=== PATIENT | male | born 1980 | race American Indian/Alaskan Native ===

== ENCOUNTER 2016-07-13 11:47 | Inpatient (IN) | payer OTHER ==
[2016-07-13 14:00] LABS: Basophils % (Auto) 0.6 % (0.0-1.8); Hematocrit 41.9 % (35.5-45.6); Hemoglobin 13.5 gm/dl (11.8-15.2); Mean Corpuscular HGB Conc 32 % (32-34); Mean Corpuscular Hemoglobin 29 pg (28-32); Mean Corpuscular Volume 91 fl (84-94); Platelet Count 349 K/mm3 (140-440); Red Blood Count 4.59 M/mm3 (3.65-5.03); Red Cell Distribution Width 13.3 % (13.2-15.2); White Blood Count 7.4 K/mm3 (4.5-11.0)
[2016-07-13 14:02] LABS: Anion Gap 17 mmol/L; Blood Urea Nitrogen 16 mg/dL (9-20); Calcium 8.8 mg/dL (8.4-10.2); Carbon Dioxide 23 mmol/L (22-30); Chloride 98.1 mmol/L (98-107); Glucose 90 mg/dL (75-100); Potassium 4.2 mmol/L (3.6-5.0); Sodium 134 mmol/L (137-145)
[2016-07-13] MEDS ORDERED: NORCO 5/325 PO ONE (20:40)
--- NOTE | 2016-07-13 20:48 | Emergency Department Report ---
HPI - General Chief Complaint: Skin/Abscess/Foreign Body Time Seen by Provider: 07/13/16 20:24 - HPI HPI: Room 7 The patient is a 35-year-old male presenting with a chief complaint of rectal pain. Patient states for 1 week she has had pain in the rectal area and has noticed a small amount of blood whenever he has a bowel movement. The patient states he also noticed some pus with a bowel movement. He states at times he has to strain when he has a bowel movement. Having a bowel movement does not change the pain. Patient denies any history of fever nausea or vomiting. Patient denies abdominal pain. Rufen helps his pain. Patient denies any recent rectal sexual activity. Of note the patient has a history of perirectal abscess that required surgical drainage in 2014 Location: Rectum Duration: One week Quality: Pain Severity: Moderate Modifying factors: [see above] Context: [see above] Mode of transportation: [not driving] ED Past Medical Hx - Past Medical History Hx Hypertension: Yes Hx HIV: Yes Additional medical history: gout - Surgical History Additional Surgical History: rectal abscess drainage [address] Casarez - Family History Family history: no significant - Social History Smoking Status: Never Smoker Substance Use Type: None (denies illicit drug use), Alcohol (occasional) ED Review of Systems ROS: Stated complaint: HEAVY PAIN BUTTOCKS Other details as noted in HPI Comment: All other systems reviewed and negative Constitutional: denies: chills, fever Eyes: denies: eye pain, eye discharge, vision change ENT: denies: ear pain, throat pain Respiratory: denies: cough, shortness of breath, wheezing Cardiovascular: denies: chest pain, palpitations Endocrine: no symptoms reported Gastrointestinal: hematochezia. denies: abdominal pain, nausea, vomiting, diarrhea Genitourinary: denies: urgency, dysuria Musculoskeletal: denies: back pain, joint swelling, arthralgia Skin: denies: rash, lesions Neurological: denies: headache, weakness, paresthesias Psychiatric: denies: anxiety, depression Hematological/Lymphatic: denies: easy bleeding, easy bruising Physical Exam - Physical Exam Vital Signs: Vital Signs 07/13/16 07/13/16 13:11 19:32 Temperature 98.1 F Pulse Rate 95 H 110 H Respiratory 18 20 Rate Blood Pressure 150/102 Blood Pressure 143/88 [Right] O2 Sat by Pulse 100 100 Oximetry Physical Exam: GENERAL: The patient is well-developed well-nourished male lying on stretcher not appearing to be in acute distress. [] HEENT: Normocephalic. Atraumatic. Extraocular motions are intact. Patient has moist mucous membranes. NECK: Supple. Trachea midline CHEST/LUNGS: Clear to auscultation. There is no respiratory distress noted. HEART/CARDIOVASCULAR: Regular. There is no tachycardia. There is no gallop rub or murmur. ABDOMEN: Abdomen is soft, nontender. Patient has normal bowel sounds. There is no abdominal distention. SKIN: There is no rash. There is no edema. There is no diaphoresis. NEURO: The patient is awake, alert, and oriented. The patient is cooperative. The patient has normal speech MUSCULOSKELETAL: There is no evidence of acute injury. RECTAL: No external hemorrhoids seen. Patient has tenderness inside the rectum along the left wall there is no induration or fluctuance appreciated ED Course Vital Signs 07/13/16 07/13/16 13:11 19:32 Temperature 98.1 F Pulse Rate 95 H 110 H Respiratory 18 20 Rate Blood Pressure 150/102 Blood Pressure 143/88 [Right] O2 Sat by Pulse 100 100 Oximetry - Consultations Consultation #1: 07/13/16 22:45 Surgery consulted 07/13/16 22:[address] Rodas-recommends keeping the patient nothing by mouth and initiating Levaquin and Flagyl. Have the hospitalist admit and he will consult ED Medical Decision Making - Lab Data Result diagrams: 07/13/16 13:29 07/13/16 13:29 Laboratory Tests 07/13/16 07/13/16 13:29 13:29 WBC 7.4 RBC 4.59 Hgb 13.5 Hct 41.9 MCV 91 MCH 29 MCHC 32 RDW 13.3 Plt Count 349 Lymph % (Auto) 21.5 [place] % (Auto) 10.3 H Eos % (Auto) 2.0 Baso % (Auto) 0.6 Lymph # 1.6 [place] # 0.8 Eos # 0.1 Baso # 0.0 Seg Neutrophils % 65.6 Seg Neutrophils # 4.9 Sodium 134 L Potassium 4.2 Chloride 98.1 Carbon Dioxide 23 Anion Gap 17 BUN 16 Creatinine 0.8 Estimated GFR > 60 BUN/Creatinine Ratio 20.00 Glucose 90 Calcium 8.8 - Radiology Data Radiology results: report reviewed (CT abdomen and pelvis), image reviewed (CT abdomen and pelvis) CT abdomen and pelvis (read by radiologist)- abnormal masses seen associated with the posterior aspect of the right side of the rectum. This could be secondary to phlegmon or abscess, but could also represent tumor and biopsy may be necessary for diagnosis. Surgical consultation is recommended. Mildly prominent lymph nodes are seen in the fat adjacent to this. These may be reactive. Possibility of metastatic disease is not excluded. - Differential Diagnosis hemorrhoid, perirectal abscess, proctitis Critical care attestation.: If time is entered above; I have spent that time in minutes in the direct care of this critically ill patient, excluding procedure time. ED Disposition Clinical Impression: HIV positive, Rectal pain, Perirectal abscess Disposition: OP ADMITTED IP TO THIS HOSP Is pt being admited?: Yes Does the pt Need Aspirin: No Condition: Fair Referrals: PRIMARY CARE, [Primary Care Provider] - 3-5 Days Time of Disposition: 22:55 (hospitalist paged)
--- NOTE | 2016-07-13 22:33 | Cat Scan Report ---
FINAL REPORT EXAM: CT ABDOMEN PELVIS W CON HISTORY: rectal pain. History of perirectal abscess 2014. TECHNIQUE: Serial axial images through the abdomen and pelvis with coronal and sagittal reconstruction. Intravenous administration of 100 milliliters Omnipaque 300 PRIORS: CT abdomen pelvis from 12/02/2014 FINDINGS: No focal consolidations are seen in the lung bases. No pleural effusion is seen. No focal hepatic lesion is identified. Gallbladder appears normal. Pancreas appears normal. Spleen appears normal. Adrenal glands appear normal. Left kidney appears normal. Right renal cyst is again noted. Aorta is normal in caliber. Bladder appears normal. No free fluid. There is not evidence of bowel obstruction. There is a mass associated with the posterior aspect of the right side of the rectum extending to the level of the anus that measures approximately 7.9 x 5.7 x 6.9 centimeters. Mildly prominent lymph nodes are seen in the adjacent fat. Mesenteric lymph nodes in the upper abdomen appears similar to the prior study. No acute osseous abnormality is identified. IMPRESSION: 1. Abnormal mass is seen associated with the posterior aspect of the right side of the rectum. This could be secondary to phlegmon or abscess, but could also represent tumor, and biopsy may be necessary for diagnosis. Surgical consultation is recommended. Mildly prominent lymph nodes are seen in the fat adjacent to this. These may be reactive. Possibility of metastatic disease is not excluded. 2. Right renal cyst. This appears similar to the prior study. UNF
[2016-07-13] MEDS ORDERED: LEVAQUIN 500MG/100ML 500 MG/100 ML BAG IV ONE (22:54)
[2016-07-13] MEDS ORDERED: FLAGYL 500 MG/100 ML 500 MG/100 ML BAG IV ONE (23:26)
[2016-07-13] MEDS: FLAGYL 500 MG/100 ML 500 MG/100 ML BAG IV ONE (23:50)
--- NOTE | 2016-07-13 23:55 | History and Physical Report ---
History of Present Illness History of present illness: SEE PREVIUS H&P DICTATION Medications and Allergies Allergies Allergy/AdvReac Type Severity Reaction Status Date / Time No Known Allergies Allergy Verified 10/27/14 12:51 Active Meds: Active Medications Metronidazole (Flagyl 500 Mg/100 Ml) 500 mg in 100 mls @ 100 mls/hr IV ONCE ONE Stop: 07/14/16 23:54 Last Admin: 07/13/16 23:50 Dose: 100 mls/hr Exam - Constitutional Vitals: Temp Pulse Resp BP Pulse Ox 98.1 F 110 H 20 143/88 100 07/13/16 13:11 07/13/16 19:32 07/13/16 19:32 07/13/16 19:32 07/13/16 19:32 Results - Labs CBC & Chem 7: 07/15/16 04:52 07/15/16 04:52 Labs: Abnormal lab results 07/13/16 07/13/16 Range/Units 13:29 13:29 [place] % (Auto) 10.3 H (0.0-7.3) % Sodium 134 L (137-145) mmol/L
[2016-07-14] MEDS ORDERED: ZOFRAN IV PRN (00:08)
[2016-07-14] MEDS ORDERED: MILK OF MAGNESIA PO PRN (00:08)
[2016-07-14] MEDS ORDERED: DULCOLAX PR PRN (00:08)
[2016-07-14] MEDS ORDERED: TYLENOL PO PRN (00:08)
--- NOTE | 2016-07-14 07:46 | Admit Criteria Form ---
Admission Criteria Documentation: SKIN AND WOUND CARE Clinical Indications for Inpatient Care (Place 'X' for any and all applicable criteria): Ongoing inpatient care may be indicated for pressure, venous, arterial, or neuropathic ulcers, with ANY ONE of the following (2)(3)(8)(9)(21)(25): [ ]I. Need for ANY ONE of the following(26) [ ]a) Pressure ulcer closure procedures [ ]b) Skin grafting [ ]c) Wound debridement [ ]d) Dressing change under general anesthesia [ ]e) Arterial revascularization procedures(19) (Also use Aortofemoral or Aortoiliac Bypass or Femoral Popliteal Bypass Criteria as appropriate) [ ]f) Amputation (Also use Foot: Transmetatarsal Amputation or Knee: Amputation Above or Below Knee Criteria as appropriate) [ ]g) Diverting colostomy [ ]h) Other significant surgical treatment [X ]II. Infection requiring inpatient care as indicated by ALL of the following (27) [X ]a) ANY ONE of the following signs of infection: [ ]i) Poorly approximated incision line. [ ]ii) Excessive drainage [ ]iii) Foul odor [X ]iv) Pus [ ]v) Increased redness [ ]vi) Breakdown in tissue after suture removal [ ]vii) Fever [X ]b) ANY ONE of the following findings: [ ]i) Mental status changes [ ]ii) Dehydration [ ]iii) Bacteremia [ ]iv) Perineal infection [ ]v) Hemodynamic instability [ X]vi) High-risk conditions, such as ANY ONE of the following: [ ]1) Poorly controlled diabetes [ ]2) Cirrhosis [ ]3) Neutropenia [ ]4) Asplenia [ X]5) HIV infection [ ]6) Immunosuppression Extended stay beyond goal length of stay for primary condition may be needed until ALL of the following are present(1)(2)(13)(21)(27): [ ]a) Tissue necrosis absent or treatment plan manageable at lower level of care [ ]b) Fistulas, tunneling, or underlying deep tissue infection absent or treated [ ]c) Purulence and tissue breakdown absent or improved [ ]d) Ulcer surgical repair absent or healing without complications [ ]e) Wound infection absent or manageable at lower level of care [ ]f) Comorbidities absent or manageable at lower level of care The original [facility] content created by Emanuel Tamez has been revised. The portions of the content which have been revised are identified through the use of italic text or in bold, and [facility] has neither reviewed nor approved the modified material. All other unmodified content is copyright [facility]. Please see references footnoted in the original [facility] edition 2016 Admission Criteria Met: Yes
--- NOTE | 2016-07-14 09:59 | History and Physical Report ---
CHIEF COMPLAINT: Rectal pain. HISTORY OF PRESENT ILLNESS: This is a 38-year-old man with a history of HIV, unknown CD4 count, comes to the Emergency Room because of right-sided rectal pain. He describes the pain as sharp, intermittent in nature, lasting for less than 20 minutes, intensity 7/10, no radiation. He has been taking ibuprofen for the pain with some relief. He denies fever or chills. He admits to streaks of blood when he strains to have a bowel movement. REVIEW OF SYSTEMS: No chest pain, palpitation. No shortness of breath or cough. No abdominal pain, diarrhea. No dysuria or frequency. No rash or pruritus, anxiety, depression. No seizure or focal weakness. No headache or blurred vision. Other review of systems is negative. PAST SURGICAL HISTORY: None. SOCIAL HISTORY: Social alcohol use. No tobacco or drugs. FAMILY HISTORY: Significant for hypertension. PHYSICAL EXAMINATION: Vitals reviewed HEENT: Normocephalic, atraumatic. Pupils equal, round, react to light. Extraocular movement is intact. No scleral icterus. No JVD. No thyromegaly is noted. NECK: Supple. No carotid bruits. Mucous membrane moist. HEAR: S1, S2. Regular rate and rhythm. LUNGS: Clear to auscultation bilaterally. Breathing comfortable. ABDOMEN: Positive bowel sounds, nontender, nondistended. RECTAL: There is an area of induration. No surrounding erythema, tender to touch. LABORATORY DATA: As follows: Labs and CT abdomen and pelvis reviewed IMPRESSION AND PLAN: 1. Perirectal abscess/Mass. Admit to Medicine. Place on bowel rest. We will give IV Flagyl, Levaquin, consult Surgery. Start IV morphine. 2. Deep venous thrombosis prophylaxis. JOB# [id number] AES/NTS MTDD
--- NOTE | 2016-07-14 13:38 | Consultation ---
History of Present Illness Consult date: 07/14/16 Reason for consult: other (perirectal abscess.) Chief complaint: Perirectal pain. - History of present illness History of present illness: 35 years old male with perirectal pain. Came to the emergency room and a CAT scan of the pelvis showed a perirectal abscess. Consulted for management. Past History Past Medical History: HIV/AIDS, hypertension, other (gout) Past Surgical History: Other (incision and drainage of perirectal abscess) Social history: no significant social history Family history: no significant family history Medications and Allergies Allergies Allergy/AdvReac Type Severity Reaction Status Date / Time No Known Allergies Allergy Verified 10/27/14 12:51 Active Meds: Active Medications Acetaminophen (Tylenol) 650 mg PO Q4H PRN PRN Reason: Pain MILD(1-3)/Fever >100.5/MUELLER Bisacodyl (Dulcolax) 10 mg HI QDAY PRN PRN Reason: Constipation unrelieved by MOM Enoxaparin Sodium (Lovenox) 40 mg SUB-Q QDAY@2200 PETRONA Metronidazole (Flagyl 500 Mg/100 Ml) 500 mg in 100 mls @ 100 mls/hr IV ONCE ONE Stop: 07/14/16 23:54 Last Admin: 07/13/16 23:50 Dose: 100 mls/hr Levofloxacin/Dextrose (Levaquin 750mg/150ml) 750 mg in 150 mls @ 100 mls/hr IV Q24HR@2200 PETRONA PRN Reason: Protocol Metronidazole (Flagyl 500 Mg/100 Ml) 500 mg in 100 mls @ 100 mls/hr IV Q8HR [facility] Magnesium Hydroxide (Milk Of Magnesia) 30 ml PO Q4H PRN PRN Reason: Constipation Morphine Sulfate (Morphine) 2 mg IV Q4H PRN PRN Reason: Pain, Moderate (4-6) Ondansetron HCl (Zofran) 4 mg IV Q8H PRN PRN Reason: N/V unrelieved by Reglan Review of Systems All systems: negative (present complaint.) Exam Vital Signs Temp Pulse Resp BP Pulse Ox 98.1 F 95 H 18 150/102 100 07/13/16 13:11 07/13/16 13:11 07/13/16 13:11 07/13/16 13:11 05/16/17 13:11 - General physical appearance Positive: well developed, well nourished, no distress, obese - Eyes Positive: PERRL, normal occular movement - ENT Positive: normal pinna, normal nares, normal mucosa, no hearing loss, no congestion - Neck Positive: no masses, no bruits, trachea midline, no venous distension - Respiratory Positive: normal expansion, normal respiratory effort, clear to auscultation - Cardiovascular Rhythm: regular Heart Sounds: Present: S1 & S2 - Extremities Extremities: no ischemia - Abdomen Abdomen: Present: soft, bowel sounds normal. Absent: tender, distended - Genitourinary Male Genitourinary: deferred - Rectum Rectum: mass (tender lump in the posterior perirectal area.) - Neurologic Neurologic: alert and oriented to time, place and person, motor strength and sensation are grossly intact - Musculoskeletal normal gait, normal posture - Psychiatric Psychiatric: appropriate mood/affect, intact judgment & insight Results - Labs 07/13/16 13:29 07/13/16 13:29 - Imaging CT scan - pelvis: report reviewed Assessment and Plan Impression: #1. Perirectal mass and/or phlegmon. #2. HIV positive. #3. Hypertension. Recommendation: Incision and drainage and examination under anesthesia PHLEGMON in the perirectal area possible biopsy. Patient scheduled for the procedure tomorrow under general anesthesia in the operating room. He was not done today because the patient didn't stay nothing by mouth.
[2016-07-14] MEDS: FLAGYL 500 MG/100 ML 500 MG/100 ML BAG IV SCH ×3 (15:39→22:00)
--- NOTE | 2016-07-14 16:27 | Anesthesia Consultation ---
Anesthesia Consult and Med Hx Date of service: 07/14/16 - Airway Anesthetic Teeth Evaluation: Good ROM Head & Neck: Adequate Mental/Hyoid Distance: Adequate Mallampati Class: Class III Intubation Access Assessment: Possibly Difficult - Pre-Operative Health Status ASA Pre-Surgery Classification: ASA3 Proposed Anesthetic Plan: General - Pulmonary Hx Asthma: No COPD: No Hx Pneumonia: No - Cardiovascular System Hx Hypertension: Yes (htn) - Central Nervous System Hx Back Pain: No (gout) - Endocrine Hx End Stage Renal Disease: No - Other Systems Hx Cancer: No Hx Obesity: Yes (BMI 36.6) - Additional Comments Anesthesia Medical History Comments: HIV-positive
--- NOTE | 2016-07-14 17:45 | Progress Note ---
Assessment and Plan Assessment and plan: --Perirectal mass ; IV antibiotics, nothing by mouth status, possible incision and drainage tomorrow Pain medications, surgery following --Hypertension; moderate control Closely monitor blood pressures when necessary hydralazine --History of HIV Patient will follow with health Department/ID first HIV needs upon discharge --DVT prophylaxis with Lovenox --Obesity; counseling done patient strongly advised dietary modification and exercise as tolerated and weight reduction When medically stable, verbalized understanding Closely monitor the patient and adjust management as needed Consults and recommendations noted and appreciated History Interval history: Patient seen and evaluated medical records reviewed Admitted with perirectal mass, evaluated by surgery Scheduled for incision and drainage/biopsy tomorrow Patient complains of some pain Alert awake oriented 3 not in acute distress Vital signs reviewed stable Hospitalist Physical - Constitutional Vitals: Temp Pulse Resp BP Pulse Ox 98.4 F 89 20 133/86 98 07/14/16 07:45 07/14/16 07:45 07/14/16 07:45 07/14/16 07:45 07/14/16 07:45 General appearance: Present: no acute distress, well-nourished, obese - EENT Eyes: Present: PERRL, EOM intact - Neck Neck: Present: supple, normal ROM - Respiratory Respiratory effort: normal Respiratory: bilateral: diminished, negative: rales, rhonchi, wheezing - Cardiovascular Rhythm: regular Heart Sounds: Present: S1 & S2 - Extremities Extremities: no ischemia, pulses intact, pulses symmetrical Peripheral Pulses: within normal limits - Abdominal General gastrointestinal: soft, non-tender, non-distended, normal bowel sounds - Integumentary Integumentary: Present: clear, warm - Psychiatric Psychiatric: appropriate mood/affect, cooperative - Neurologic Neurologic: CNII-XII intact, moves all extremities Results - Labs CBC & Chem 7: 07/13/16 13:29 07/13/16 13:29 Labs: Laboratory Last Values WBC 7.4 K/mm3 (4.5-11.0) 07/13/16 13:29 RBC 4.59 M/mm3 (3.65-5.03) 07/13/16 13:29 Hgb 13.5 gm/dl (11.8-15.2) 07/13/16 13:29 Hct 41.9 % (35.5-45.6) 07/13/16 13:29 MCV 91 fl (84-94) 07/13/16 13:29 MCH 29 pg (28-32) 07/13/16 13:29 MCHC 32 % (32-34) 07/13/16 13:29 RDW 13.3 % (13.2-15.2) 07/13/16 13:29 Plt Count 349 K/mm3 (140-440) 07/13/16 13:29 Lymph % (Auto) 21.5 % (13.4-35.0) 07/13/16 13:29 [place] % (Auto) 10.3 % (0.0-7.3) H 07/13/16 13:29 Eos % (Auto) 2.0 % (0.0-4.3) 07/13/16 13:29 Baso % (Auto) 0.6 % (0.0-1.8) 07/13/16 13:29 Lymph # 1.6 K/mm3 (1.2-5.4) 07/13/16 13:29 [place] # 0.8 K/mm3 (0.0-0.8) 07/13/16 13:29 Eos # 0.1 K/mm3 (0.0-0.4) 07/13/16 13:29 Baso # 0.0 K/mm3 (0.0-0.1) 07/13/16 13:29 Seg Neutrophils % 65.6 % (40.0-70.0) 07/13/16 13:29 Seg Neutrophils # 4.9 K/mm3 (1.8-7.7) 07/13/16 13:29 Sodium 134 mmol/L (137-145) L 07/13/16 13:29 Potassium 4.2 mmol/L (3.6-5.0) 07/13/16 13:29 Chloride 98.1 mmol/L (98-107) 07/13/16 13:29 Carbon Dioxide 23 mmol/L (22-30) 07/13/16 13:29 Anion Gap 17 mmol/L 07/13/16 13:29 BUN 16 mg/dL (9-20) 07/13/16 13:29 Creatinine 0.8 mg/dL (0.8-1.5) 07/13/16 13:29 Estimated GFR > 60 ml/min 07/13/16 13:29 BUN/Creatinine Ratio 20.00 % 07/13/16 13:29 Glucose 90 mg/dL (75-100) 07/13/16 13:29 Calcium 8.8 mg/dL (8.4-10.2) 07/13/16 13:29
[2016-07-14] MEDS: FLAGYL 500 MG/100 ML 500 MG/100 ML BAG IV ONE (22:22)
[2016-07-14] MEDS: LOVENOX SUB-Q SCH (22:23)
[2016-07-14] MEDS: LEVAQUIN 750MG/150ML 750 MG/150 ML BAG IV SCH (22:23)
[2016-07-14] MEDS: MORPHINE IV PRN (22:30)
[2016-07-15] MEDS: FLAGYL 500 MG/100 ML 500 MG/100 ML BAG IV SCH ×3 (05:29→23:05)
[2016-07-15 05:34] LABS: White Blood Count 6.1 K/mm3 (4.5-11.0)
[2016-07-15 05:35] LABS: Basophils % (Auto) 0.6 % (0.0-1.8); Eosinophils % (Auto) 4.4 % (0.0-4.3); Hematocrit 37.5 % (35.5-45.6); Hemoglobin 12.4 gm/dl (11.8-15.2); Mean Corpuscular HGB Conc 33 % (32-34); Mean Corpuscular Hemoglobin 30 pg (28-32); Mean Corpuscular Volume 92 fl (84-94); Platelet Count 325 K/mm3 (140-440); Red Blood Count 4.09 M/mm3 (3.65-5.03); Red Cell Distribution Width 13.1 % (13.2-15.2)
[2016-07-15 05:45] LABS: Anion Gap 16 mmol/L; Blood Urea Nitrogen 12 mg/dL (9-20); Calcium 8.7 mg/dL (8.4-10.2); Carbon Dioxide 26 mmol/L (22-30); Chloride 100.1 mmol/L (98-107); Glucose 89 mg/dL (75-100); Potassium 4.8 mmol/L (3.6-5.0); Sodium 137 mmol/L (137-145)
[2016-07-15 06:10] LABS: INR 1.22 (0.87-1.13)
[2016-07-15 06:11] LABS: Partial Thromboplastin Time 38.8 Sec. (24.2-36.6)
[2016-07-15] MEDS ORDERED: VERSED IV NR (07:00)
[2016-07-15] MEDS ORDERED: PEPCID IV NR (07:00)
[2016-07-15] MEDS ORDERED: LACTATED RINGERS 1,000 ML IV SCH (07:00)
--- NOTE | 2016-07-15 09:18 | Progress Note ---
Assessment and Plan Assessment and plan: --Perirectal mass ; Incision and drainage and debridement today IV antibiotics, nothing by mouth status, possible incision and drainage tomorrow Pain medications, surgery following --Hypertension; moderate control Closely monitor blood pressures when necessary hydralazine --History of HIV Patient will follow with health Department/ID first HIV needs upon discharge --DVT prophylaxis with Lovenox --Obesity; counseling done patient strongly advised dietary modification and exercise as tolerated and weight reduction When medically stable, verbalized understanding Closely monitor the patient and adjust management as needed Consults and recommendations noted and appreciated History Interval history: Since seen and evaluated medical records reviewed Scheduled for incision and drainage of perirectal abscess today Patient feels better no new complaints Vital signs reviewed stable Hospitalist Physical - Constitutional Vitals: Temp Pulse Resp BP Pulse Ox 98 F 90 18 128/84 98 07/15/16 08:00 07/15/16 08:00 07/15/16 08:00 07/15/16 08:00 07/15/16 08:00 General appearance: Present: no acute distress, well-nourished, obese - EENT Eyes: Present: PERRL, EOM intact - Neck Neck: Present: supple, normal ROM - Respiratory Respiratory effort: normal Respiratory: negative: rales, rhonchi, wheezing - Cardiovascular Rhythm: regular Heart Sounds: Present: S1 & S2 - Extremities Extremities: no ischemia, pulses intact, pulses symmetrical Peripheral Pulses: within normal limits - Abdominal General gastrointestinal: soft, non-tender, non-distended, normal bowel sounds - Integumentary Integumentary: Present: clear, warm - Psychiatric Psychiatric: appropriate mood/affect, cooperative - Neurologic Neurologic: CNII-XII intact, moves all extremities Results - Labs CBC & Chem 7: 07/15/16 04:52 07/15/16 04:52 Labs: Laboratory Last Values WBC 6.1 K/mm3 (4.5-11.0) 07/15/16 04:52 RBC 4.09 M/mm3 (3.65-5.03) 07/15/16 04:52 Hgb 12.4 gm/dl (11.8-15.2) 07/15/16 04:52 Hct 37.5 % (35.5-45.6) 07/15/16 04:52 MCV 92 fl (84-94) 07/15/16 04:52 MCH 30 pg (28-32) 07/15/16 04:52 MCHC 33 % (32-34) 07/15/16 04:52 RDW 13.1 % (13.2-15.2) L 07/15/16 04:52 Plt Count 325 K/mm3 (140-440) 07/15/16 04:52 Lymph % (Auto) 24.5 % (13.4-35.0) 07/15/16 04:52 [place] % (Auto) 12.3 % (0.0-7.3) H 07/15/16 04:52 Eos % (Auto) 4.4 % (0.0-4.3) H 07/15/16 04:52 Baso % (Auto) 0.6 % (0.0-1.8) 07/15/16 04:52 Lymph # 1.5 K/mm3 (1.2-5.4) 07/15/16 04:52 [place] # 0.7 K/mm3 (0.0-0.8) 07/15/16 04:52 Eos # 0.3 K/mm3 (0.0-0.4) 07/15/16 04:52 Baso # 0.0 K/mm3 (0.0-0.1) 07/15/16 04:52 Seg Neutrophils % 58.2 % (40.0-70.0) 07/15/16 04:52 Seg Neutrophils # 3.5 K/mm3 (1.8-7.7) 07/15/16 04:52 PT 15.3 Sec. (12.2-14.9) H 07/15/16 04:52 INR 1.22 (0.87-1.13) H 07/15/16 04:52 APTT 38.8 Sec. (24.2-36.6) H 07/15/16 04:52 Sodium 137 mmol/L (137-145) 07/15/16 04:52 Potassium 4.8 mmol/L (3.6-5.0) 07/15/16 04:52 Chloride 100.1 mmol/L (98-107) 07/15/16 04:52 Carbon Dioxide 26 mmol/L (22-30) 07/15/16 04:52 Anion Gap 16 mmol/L 07/15/16 04:52 BUN 12 mg/dL (9-20) 07/15/16 04:52 Creatinine 0.8 mg/dL (0.8-1.5) 07/15/16 04:52 Estimated GFR > 60 ml/min 07/15/16 04:52 BUN/Creatinine Ratio 15.00 % 07/15/16 04:52 Glucose 89 mg/dL (75-100) 07/15/16 04:52 Calcium 8.7 mg/dL (8.4-10.2) 07/15/16 04:52
[2016-07-15] MEDS ORDERED: DIPRIVAN 10 MG/ML IV ONE (10:23)
[2016-07-15] MEDS ORDERED: DILAUDID ONE ×2 (10:24→12:48)
[2016-07-15] MEDS ORDERED: ROBINUL ONE (10:27)
[2016-07-15] MEDS ORDERED: QUELICIN ONE (10:27)
[2016-07-15] MEDS ORDERED: ZEMURON IV ONE (10:27)
[2016-07-15] MEDS ORDERED: XYLOCAINE MPF 2% ONE (10:28)
[2016-07-15] MEDS ORDERED: NEOSTIGMINE ONE (10:28)
--- NOTE | 2016-07-15 10:39 | Anesthesia Day of Surgery ---
Anesthesia Day of Surgery - Day of Surgery Patient Examined: Yes Patient H&P Reviewed: Yes Patient is NPO: Yes
[2016-07-15] MEDS ORDERED: ZOFRAN ONE (11:36)
[2016-07-15] MEDS ORDERED: DECADRON ONE (11:36)
[2016-07-15] MEDS ORDERED: BREVIBLOC IV ONE (11:42)
[2016-07-15] MEDS ORDERED: MARCAINE-EPI 0.5%-1:200,000 INFILTRATI ONE (11:55)
[2016-07-15] MEDS ORDERED: NACL 0.9% IR ONE (12:21)
[2016-07-15] MEDS ORDERED: MARCAINE 0.5% INFILTRATI ONE (12:22)
--- NOTE | 2016-07-15 12:44 | Operative Report ---
Operative Report Operative Report: Date of operation: 07/15/2016. Preoperative diagnosis: Perirectal abscess. Postoperative diagnoses: Perirectal abscess. Operation: Incision, drainage and excisional debridement of a perirectal abscess. Surgeon: Magdi Rodas M.D. Findings: 35 years old male with history of HIV/AIDS admitted to the hospital with perirectal pain. A CT of the pelvis showed an area off abnormality in the posterior perirectal area described as a Cyst versus tumor. At operation we found posterior mucosal perirectal mass from the body made and some solid tissue. There was an external orifice of these mass/cavity to the anal skin in the right posterior area. Procedure: Under general anesthesia with the patient adequately temporal pulsation the buttocks were spread with tape. The perianal region was prepped and draped in the usual sterile manner. Rectal examination was done digitally and also visually using a previous incision retractor. The submucosal lump was felt with my finger. Because it was just next to the external orifice we went ahead and pass a probe through the external orifice and some bloody fluid came out. The artery crease was made bigger, enough to admit my index finger. I introduced my finger in the cavity and some solid tissue was excised. This was sent to pathology for examination. Then the area was irrigated with normal saline solution. Because incision went a little bit deeper in the mucosa we went ahead and put a stitch of Vicryl on it. After this was done there wound and cavity were packed with Betadine soaked fluff gauze. Marcaine 0.5% was injected in the perirectal area for postoperative analgesia. A piece of Gelfoam was left down the canal. The wound was dressed with fluffs and AVD pads. The patient was returned to the supine position, awakened, extubated and transferred to the recovery room in good condition. Intravenous fluid replacement: crystalloids. Estimated blood loss: Less than 50 mL. Condition: Good.
[2016-07-15] MEDS: DILAUDID IV PRN ×2 (12:46→13:00)
[2016-07-15] MEDS: MORPHINE IV PRN (14:05)
--- NOTE | 2016-07-15 14:10 | Post Anesthesia Evaluation ---
- Post Anesthesia Evaluation Patient Participated: Yes Airway Patent: Yes Stable Respiratory Function: Yes Nausea/Vomiting: No Temp > 96.8F: Yes Pain Manageable: Yes Adequeate Hydration: Yes Anesthesia Complications: No Block Receding Appropriately: Not Applicable Patient on Ventilator: No
[2016-07-15] MEDS: LEVAQUIN 750MG/150ML 750 MG/150 ML BAG IV SCH (23:06)
[2016-07-15] MEDS: LOVENOX SUB-Q SCH (23:06)
[2016-07-16] MEDS: MORPHINE IV PRN ×3 (00:33→17:50)
[2016-07-16] MEDS: FLAGYL 500 MG/100 ML 500 MG/100 ML BAG IV SCH ×3 (06:30→21:18)
[2016-07-16 07:44] LABS: Basophils % (Auto) 0.8 % (0.0-1.8); Hematocrit 40.9 % (35.5-45.6); Hemoglobin 13.2 gm/dl (11.8-15.2); Mean Corpuscular HGB Conc 32 % (32-34); Mean Corpuscular Hemoglobin 29 pg (28-32); Mean Corpuscular Volume 91 fl (84-94); Platelet Count 374 K/mm3 (140-440); Red Blood Count 4.52 M/mm3 (3.65-5.03); White Blood Count 11.2 K/mm3 (4.5-11.0)
--- NOTE | 2016-07-16 07:44 | Progress Note ---
Assessment and Plan Assessment and plan: --Perirectal mass ; s/p Incision and drainage and debridement IV antibiotics, wound care, sitz bath Pain medications, surgery following --Hypertension; moderate control Closely monitor blood pressures when necessary hydralazine --History of HIV Patient will follow with health Department/ID first HIV needs upon discharge --DVT prophylaxis with Lovenox --Obesity; counseling done patient strongly advised dietary modification and exercise as tolerated and weight reduction When medically stable, verbalized understanding Possible discharge in 1-2 days if stable Plan of care discussed with the patient as well as his nurse History Interval history: Patient seen and evaluated medical records reviewed No new events reported by the nursing staff Alert awake oriented 3 not in acute distress Vital signs reviewed Hospitalist Physical - Constitutional Vitals: Temp Pulse Resp BP Pulse Ox 97.9 F 115 H 18 137/88 98 07/15/16 23:08 07/15/16 23:08 07/15/16 23:08 07/15/16 23:08 07/15/16 23:08 General appearance: Present: no acute distress, well-nourished, obese - EENT Eyes: Present: PERRL, EOM intact - Neck Neck: Present: supple, normal ROM - Respiratory Respiratory effort: normal Respiratory: negative: rales, rhonchi, wheezing - Cardiovascular Rhythm: regular Heart Sounds: Present: S1 & S2 - Extremities Extremities: no ischemia, pulses intact, pulses symmetrical Peripheral Pulses: within normal limits - Abdominal General gastrointestinal: soft, non-tender, non-distended, normal bowel sounds - Integumentary Integumentary: Present: clear, warm - Psychiatric Psychiatric: appropriate mood/affect, cooperative - Neurologic Neurologic: CNII-XII intact, moves all extremities Results - Labs CBC & Chem 7: 07/16/16 06:56 07/16/16 06:56 Labs: Laboratory Last Values WBC 6.1 K/mm3 (4.5-11.0) 07/15/16 04:52 RBC 4.09 M/mm3 (3.65-5.03) 07/15/16 04:52 Hgb 12.4 gm/dl (11.8-15.2) 07/15/16 04:52 Hct 37.5 % (35.5-45.6) 07/15/16 04:52 MCV 92 fl (84-94) 07/15/16 04:52 MCH 30 pg (28-32) 07/15/16 04:52 MCHC 33 % (32-34) 07/15/16 04:52 RDW 13.1 % (13.2-15.2) L 07/15/16 04:52 Plt Count 325 K/mm3 (140-440) 07/15/16 04:52 Lymph % (Auto) 24.5 % (13.4-35.0) 07/15/16 04:52 [place] % (Auto) 12.3 % (0.0-7.3) H 07/15/16 04:52 Eos % (Auto) 4.4 % (0.0-4.3) H 07/15/16 04:52 Baso % (Auto) 0.6 % (0.0-1.8) 07/15/16 04:52 Lymph # 1.5 K/mm3 (1.2-5.4) 07/15/16 04:52 [place] # 0.7 K/mm3 (0.0-0.8) 07/15/16 04:52 Eos # 0.3 K/mm3 (0.0-0.4) 07/15/16 04:52 Baso # 0.0 K/mm3 (0.0-0.1) 07/15/16 04:52 Seg Neutrophils % 58.2 % (40.0-70.0) 07/15/16 04:52 Seg Neutrophils # 3.5 K/mm3 (1.8-7.7) 07/15/16 04:52 PT 15.3 Sec. (12.2-14.9) H 07/15/16 04:52 INR 1.22 (0.87-1.13) H 07/15/16 04:52 APTT 38.8 Sec. (24.2-36.6) H 07/15/16 04:52 Sodium 137 mmol/L (137-145) 07/15/16 04:52 Potassium 4.8 mmol/L (3.6-5.0) 07/15/16 04:52 Chloride 100.1 mmol/L (98-107) 07/15/16 04:52 Carbon Dioxide 26 mmol/L (22-30) 07/15/16 04:52 Anion Gap 16 mmol/L 07/15/16 04:52 BUN 12 mg/dL (9-20) 07/15/16 04:52 Creatinine 0.8 mg/dL (0.8-1.5) 07/15/16 04:52 Estimated GFR > 60 ml/min 07/15/16 04:52 BUN/Creatinine Ratio 15.00 % 07/15/16 04:52 Glucose 89 mg/dL (75-100) 07/15/16 04:52 Calcium 8.7 mg/dL (8.4-10.2) 07/15/16 04:52
[2016-07-16 08:01] LABS: Anion Gap 16 mmol/L; BUN/Creatinine Ratio 16.25; Blood Urea Nitrogen 13 mg/dL (9-20); Carbon Dioxide 27 mmol/L (22-30); Chloride 98.2 mmol/L (98-107); Glucose 113 mg/dL (75-100); Potassium 4.3 mmol/L (3.6-5.0); Sodium 137 mmol/L (137-145)
--- NOTE | 2016-07-16 12:55 | Progress Note ---
Assessment and Plan IMP: Stabel after I&D and debridement. PLAN: Continue sitz bath. Home per internal medicine. Subjective Date of service: 07/16/16 Patient Reports: Positive: no new complaints, pain is less, voiding w/o difficulty, other (reports that the packing has been removed and started sitz bath) Objective Vital Signs - 12hr 07/16/16 08:46 Temperature 98.1 F Pulse Rate [ 118 H Right Radial] Respiratory 18 Rate Blood Pressure 131/78 [Left Arm] O2 Sat by Pulse 99 Oximetry - Rectum other (dressings in place) - Labs 07/16/16 06:56 07/16/16 06:56 Diabetes panel 07/16/16 Range/Units 06:56 Sodium 137 (137-145) mmol/L Potassium 4.3 (3.6-5.0) mmol/L Chloride 98.2 (98-107) mmol/L Carbon Dioxide 27 (22-30) mmol/L BUN 13 (9-20) mg/dL Creatinine 0.8 (0.8-1.5) mg/dL Glucose 113 H (75-100) mg/dL Calcium 9.0 (8.4-10.2) mg/dL Calcium panel 07/16/16 Range/Units 06:56 Calcium 9.0 (8.4-10.2) mg/dL Pituitary panel 07/16/16 Range/Units 06:56 Sodium 137 (137-145) mmol/L Potassium 4.3 (3.6-5.0) mmol/L Chloride 98.2 (98-107) mmol/L Carbon Dioxide 27 (22-30) mmol/L BUN 13 (9-20) mg/dL Creatinine 0.8 (0.8-1.5) mg/dL Glucose 113 H (75-100) mg/dL Calcium 9.0 (8.4-10.2) mg/dL Adrenal panel 07/16/16 Range/Units 06:56 Sodium 137 (137-145) mmol/L Potassium 4.3 (3.6-5.0) mmol/L Chloride 98.2 (98-107) mmol/L Carbon Dioxide 27 (22-30) mmol/L BUN 13 (9-20) mg/dL Creatinine 0.8 (0.8-1.5) mg/dL Glucose 113 H (75-100) mg/dL Calcium 9.0 (8.4-10.2) mg/dL
[2016-07-16] MEDS ORDERED: PERCOCET 5/325 PO PRN (17:36)
[2016-07-16] MEDS: LOVENOX SUB-Q SCH (21:17)
[2016-07-16] MEDS: LEVAQUIN 750MG/150ML 750 MG/150 ML BAG IV SCH (21:18)
[2016-07-17] MEDS: MORPHINE IV PRN (04:57)
[2016-07-17] MEDS ORDERED: FLAGYL PO SCH (06:00)
[2016-07-17 07:46] VITALS: BP 116/57
--- NOTE | 2016-07-17 08:10 | Discharge Summary ---
Providers - Providers Date of Admission: 07/13/16 23:54 Date of discharge: 07/17/16 Attending physician: MARCO SLOAN 07/15/16 12:27 Consult to Wound/ET Nurse [CONS] Routine Reason For Exam: wound eval Primary care physician: TRACK MAINTAINER Hospitalization Reason for admission: rectal pain Condition: Fair Pertinent studies: CT abdomen and pelvis; abnormal mass seen associated with the posterior aspect of the right side of the rectum could be phlegmon or abscess right renal cyst Incision and drainage and excisional debridement of the mac rectal abscess Hospital course: 38-year-old male patient with significant past medical history of HIV not on any medications was admitted through emergency room with rectal pain patient was initially evaluated and noted to have perirectal abscess/mass admitted to the hospital, managed with the empiric antibiotics subsequently evaluated by general surgeon Patient underwent surgical procedure with the incision and drainage and debridement of perirectal abscess Patient received wound care, sitz bath, symptoms significantly improved Surgery has cleared for discharge and follow-up with them as outpatient manager apple has evaluated the patient, set up home health and home wound care upon discharge Patient advised dietary modification and exercise as tolerated weight reduction for his obesity Today , patient is comfortable in bed denies any pain no fever Alert awake oriented 3, vital signs are stable [id number] evaluation physical examination done by me prior to discharge is unremarkable as detailed below Patient also advised to follow with his primary care physician/health Department /infectious diseases for his HIV needs patient verbalized understanding Final diagnosis; Prerectal abscess Status post incision and drainage History of HIV Hypertension Obesity Disposition: DC/TX HOME UNDER HOME HEALTH Time spent for discharge: 32 min Core Measure Documentation - Palliative Care Palliative Care/ Comfort Measures: Not Applicable - Core Measures Any of the following diagnoses?: none Exam - Constitutional Vitals: Temp Pulse Resp BP Pulse Ox 98.7 F 99 H 20 116/57 99 07/17/16 07:44 07/17/16 07:44 07/17/16 07:44 07/17/16 07:44 07/16/16 23:00 General appearance: Present: no acute distress, well-nourished - EENT Eyes: Present: PERRL, EOM intact - Neck Neck: Present: supple, normal ROM - Respiratory Respiratory effort: normal Respiratory: negative: rales, rhonchi, wheezing - Cardiovascular Rhythm: regular Heart Sounds: Present: S1 & S2 - Extremities Extremities: no ischemia, pulses intact, pulses symmetrical Peripheral Pulses: within normal limits - Abdominal General gastrointestinal: Present: soft, non-tender, non-distended, normal bowel sounds - Integumentary Integumentary: Present: clear, warm - Musculoskeletal Musculoskeletal: strength equal bilaterally - Psychiatric Psychiatric: appropriate mood/affect, cooperative - Neurologic Neurologic: CNII-XII intact, moves all extremities Plan Activity: no restrictions Diet: regular Wound: per wound nurse instructions Additional Instructions: Sitz bath twice a day Follow up with: PRIMARY CARE, [Primary Care Provider] - 3-5 Days KAMRAN MA MD [Staff Physician] - 7 Days Prescriptions: Ciprofloxacin HCl [Ciprofloxacin TAB] 500 mg PO Q12H #20 tab metroNIDAZOLE [Flagyl TAB] 500 mg PO Q8HR #30 tablet oxyCODONE /ACETAMINOPHEN [Percocet 5/325 mg] 1 tab PO BID PRN #10 tablet PRN Reason: Pain, Moderate (4-6)
[2016-07-17] MEDS ORDERED: LEVAQUIN PO SCH (22:00)
== END 2016-07-17 12:48 | disposition home health service (06) | DRG 344 ==
LOC: ED 11:47 → 3A 23:54
PROVIDERS: ADMIT Internal Medicine; ATTEND Internal Medicine
PROC: 0D9P7ZZ Drainage of Rectum, Via Natural or Artificial Opening (ICD-10-PCS; principal; 2016-07-15)
DX: K61.1 Rectal abscess (principal); B20 Human immunodeficiency virus [HIV] disease; I10 Essential (primary) hypertension; M10.9 Gout, unspecified; E66.9 Obesity, unspecified; Z68.36 Body mass index [BMI] 36.0-36.9, adult; Z82.49 Family history of ischemic heart disease and other diseases of the circulatory system
CPT/HCPCS: 36415; 74177; 80048; 85025; 85610; 85730; 87075; 87116; 88304; 88342; 96365; J0330; J1100; J1170; J1650; J1956; J2250; J2270; J2405; J2704; J2710; J7120; Q9967